=== PATIENT | female | born 1985 | race Caucasian/White ===

== ENCOUNTER 2024-06-25 08:14 | Emergency (ER) | payer OTHER, SELFPAY ==
[2024-06-25 08:33] VITALS: BP 152/95; PULSE 68; TEMP 36.7; O2SAT 96; BMI 31.1
--- NOTE | 2024-06-25 08:40 | XR_ITS ---
The [address] [address] Patient Name: EMIL WILKERSON MRN: [id number] date: 1985 Sex: F Assigned Patient Location: ED.MAIN Current Patient Location: ER Accession/Order Number: [id number] Exam Date: 06/25/2024 08:55 Report Date: 06/25/2024 09:09 At the request of: MARIN LOAIZA Procedure: XR foot LT min 3V Exam: Radiographs: XR foot LT min 3V Reason for exam: injury, pain left foot Comparison: None XR/XR foot LT min 3V IMPRESSION: Unremarkable left foot radiographs. Electronically authenticated by: NIKOLAI CORRALES Date: 06/25/2024 09:09
--- NOTE | 2024-06-25 08:40 | PC.NURSE ---
Left foot and heel pain, patient reports hitting heel on floor throughout the night and is now having pain to heel and outer foot. Left foot pink and warm and pulses present, slight swelling to outer foot, pulses present. Ice pack applied.
--- NOTE | 2024-06-25 09:07 | ED.LOWEXI1 ---
HPI HPI - Extremity Injury (Lower) General Chief Complaint: Extremity Injury, Lower Stated Complaint: LOWER EXTREMITY INJURY Time Seen by Provider: 06/25/24 08:24 Source: patient Mode of arrival: walk-in Limitations: no limitations History of Present Illness HPI Narrative: The patient states that last night she stopped onto the floor to try to get the puppies down to the basement to stop playing with each other and in doing so, sustained some kind of injury to the base of the heel of the left foot. She took 800 mg ibuprofen around 6 AM. Pain is localized to the left heel. She does not have any radiation into the left ankle or the mid or distal left foot. Related Data Home Medications ?Medication ?Instructions ?Recorded ?Confirmed omeprazole 40 mg capsule,delayed 40 mg PO Q8H 06/25/24 06/25/24 release pregabalin 50 mg capsule 50 mg PO Q12H 06/25/24 06/25/24 Allergies Allergy/AdvReac Type Severity Reaction Status Date / Time No Known Drug Allergies Allergy Verified 06/25/24 08:32 Opioid HPI Opioid Management Most Recent Pain and Opioid Data: No Data to Display PFSH PFSH Social History Little interest or pleasure in doing things: not at all Feeling down, depressed, or hopeless: not at all Exam Narrative Exam Narrative: Vital signs reviewed and nurse's notes. The patient is not hypoxic. General: Alert, no acute distress, patient resting comfortably Skin: warm, intact, no pallor noted Head: Normocephalic, atraumatic Eye: Normal conjunctiva Respiratory: No acute distress Musculoskeletal: No evidence of deformity to the L foot. There is no swelling. There is no ecchymosis. No erythema or warmth noted. DP and PT pulses are intact 2+. Normal sensation, normal capillary refill less than 2 seconds. There is no cyanosis or mottling noted. The patient has tenderness to the left heel and along the left achilles tendon, which is intact and no defect is palpated. The patient was able to dorsiflex and plantarflex the left foot without difficulty. Patient was able to extend leg off the cart without difficulty. No tenderness noted to the 5th MT, midfoot, ankle or proximal fibular area. There is mild pain with calcaneal squeeze. The patient has no shortening or rotation noted to the bilateral lower extremities. Neurological: alert and orient x4, normal sensory and motor observed. Psychiatric: Cooperative Constitutional Vital Signs, click to edit/add: Last Vital Signs Temp 98.1 F 06/25/24 08:33 Pulse 68 06/25/24 08:33 Resp 20 06/25/24 08:33 BP 152/95 H 06/25/24 08:33 Pulse Ox 96 06/25/24 08:33 O2 Del Method Room Air 06/25/24 08:33 Course Vital Signs Vital signs: Vital Signs Temperature 98.1 F 06/25/24 08:33 Pulse Rate 68 06/25/24 08:33 Respiratory Rate 20 06/25/24 08:33 Blood Pressure 152/95 H 06/25/24 08:33 Pulse Oximetry 96 06/25/24 08:33 Oxygen Delivery Method Room Air 06/25/24 08:33 Temperature 98.1 F 06/25/24 08:33 Pulse Rate 68 06/25/24 08:33 Respiratory Rate 20 06/25/24 08:33 Blood Pressure 152/95 H 06/25/24 08:33 Pulse Oximetry 96 06/25/24 08:33 Oxygen Delivery Method Room Air 06/25/24 08:33 MDM - Extremity Injury (Lower) MDM Narrative Medical decision making narrative: The patient is already taken 800 mg of ibuprofen prior to arrival. X-rays of the left foot including heel view did not indicate any acute fracture. The patient was informed of results and an Elias wrap was applied to the left foot by the emergency department nurse. Patient was discharged home with recommendation to continue to take ibuprofen as well as Tylenol for pain. Imaging Data xr foot: Attestation: I personally reviewed and interpreted this imaging study as follows: My impression: No acute fracture, dislocation, foreign body or other acute abnormality noted Discharge Plan Discharge Chief Complaint: Extremity Injury, Lower Clinical Impression: Contusion of foot, left, Acute pain of left foot Patient Disposition: Home, Self-Care Time of Disposition Decision: 09:11 Prescriptions / Home Meds: No Action omeprazole 40 mg capsule,delayed release(DR/EC) 40 mg PO Q8H pregabalin 50 mg capsule 50 mg PO Q12H Print Language: Lithuanian Instructions: Foot Contusion (ED) Referrals: DIANA MELCHOR [Primary Care Provider] - 1 week
== END 2024-06-25 09:42 | disposition home or self-care (01) ==
PROVIDERS: Emergency Provider Emergency Medicine; PCP Family Medicine
DX: S90.32XA Contusion of left foot, initial encounter (principal); X58.XXXA Exposure to other specified factors, initial encounter; M79.672 Pain in left foot
CPT/HCPCS: 73630; 99283